=== PATIENT | female | born 1955 | race African-American/Black ===

== ENCOUNTER 2021-05-01 02:46 | Emergency (ER) | payer MEDICARE, OTHER ==
[~2021-05-01] VITALS: Ht 157.5 cm; Wt 59.1 kg
[~2021-05-01 02:46] MED LIST: QUET100T
[2021-05-01] MEDS ORDERED: AMIODARONE HCL 50 MG/ML 3 ML VIAL IV ONE (02:48)
[2021-05-01] MEDS ORDERED: ATROPINE SULFATE 0.1 MG/ML 10 ML SYRINGE IVP ONE (02:48)
[2021-05-01] MEDS ORDERED: EPINEPHrine 1:10,000 [1 MG/10 ML] SYRINGE IVP ONE (02:48)
[2021-05-01] MEDS ORDERED: CALCIUM GLUCONATE 100 MG/ML 10 ML IVP ONE (02:48)
[2021-05-01] MEDS ORDERED: DEXTROSE 50%-WATER 25 GM/50 ML SYRINGE IVP ONE (02:48)
[2021-05-01] MEDS ORDERED: CALCIUM CHLORIDE 100 MG/ML 10 ML VIAL IV ONE (02:48)
[2021-05-01] MEDS ORDERED: QUEtiapine FUMARATE 100 MG TABLET PO ONE ×2 (04:00→04:15)
[2021-05-01 04:31] LABS: COVID AG,FIA SOURCE NASOPHARYNGEAL
[2021-05-01 04:35] LABS: EOSINOPHILS % (AUTO) 1.2 % (1.0-6.0); HEMATOCRIT 41.3 % (36-46); HEMOGLOBIN 14.1 g/dL (12.0-16.0); LYMPHOCYTES # (AUTO) 1.1 K/uL (1.0-4.8); LYMPHOCYTES % (AUTO) 21.9 % (22.0-44.0); MEAN CORPUSCULAR HEMOGLOBIN 29.9 pg (26.0-34.0); MEAN CORPUSCULAR HGB CONC 34.2 G/dL (31.0-37.0); MEAN CORPUSCULAR VOLUME 87 fL (80-100); MONOCYTES # (AUTO) 0.4 K/uL (0.1-1.0); NEUTROPHILS # (AUTO) 3.4 K/uL (1.8-7.7); NEUTROPHILS % (AUTO) 67.9 % (40.0-70.0); PLATELET COUNT (AUTO) 408 K/uL (150-450); RED BLOOD CELL COUNT(AUTO) 4.72 MIL/uL (4.00-5.20); RED CELL DISTRIBUTION WIDTH 13.2 % (11.5-14.5)
[2021-05-01 04:44] LABS: ANION GAP 10 mmol/L (8-16); CALCIUM, TOTAL 9.4 mg/dL (8.8-10.5); CARBON DIOXIDE 27 mmol/L (22-29); CHLORIDE 103 mmol/L (98-107); CREATININE 0.66 mg/dL (0.60-1.30); GLOMERULAR FILTR. RATE CALC > 60 mL/min (>60); GLUCOSE,RANDOM 109 mg/dL (70-110); POTASSIUM 3.9 mmol/L (3.5-5.1); SODIUM SERUM 140 mmol/L (136-145); UREA NITROGEN, BLOOD 20 mg/dL (7-18)
[2021-05-01 04:46] LABS: ALANINE AMINOTRANSFERASE 26 U/L (12-78); ALBUMIN 3.8 g/dL (3.4-5.0); ALKALINE PHOSPHATASE 80 U/L (46-116); ASPARTATE AMINOTRANSFERASE 21 U/L (15-37); BILIRUBIN,TOTAL 0.5 mg/dL (0.1-1.0); TOTAL PROTEIN, SERUM 7.7 g/dL (6.4-8.2)
[2021-05-01 09:53] LABS: APPEARANCE,URINE CLEAR (CLEAR); GLUCOSE, URINE (UA) NEGATIVE (NEGATIVE); KETONES,URINE TRACE mg/dL (NEGATIVE); LEUKOCYTE ESTERASE ,URINE SMALL (NEGATIVE); NITRATE,URINE NEGATIVE (NEGATIVE); OCCULT BLOOD,URINE NEGATIVE (NEGATIVE); PH,URINE 5.5 (5.0-8.0); PROTEIN,URINE TRACE (NEGATIVE)
[2021-05-01 09:58] LABS: AMPHET/METH SCREEN,URINE POSITIVE (NEGATIVE); BARBITURATE SCREEN, URINE NEGATIVE (NEGATIVE); BENZODIAZEPINES SCREEN,URINE NEGATIVE (NEGATIVE); BILIRUBIN,URINE PRELIM. POSITIVE (NEGATIVE); CANNABINOID SCREEN,URINE NEGATIVE (NEGATIVE); COCAINE SCREEN,URINE NEGATIVE (NEGATIVE); METHADONE SCREEN, URINE NEGATIVE (NEGATIVE); OPIATE SCREEN,URINE NEGATIVE (NEGATIVE)
[2021-05-01 09:59] LABS: PHENCYCLIDINE SCREEN,URINE NEGATIVE (NEGATIVE)
[2021-05-01 10:11] LABS: BACTERIA,URINE None Seen /HPF (None Seen); RBC,URINE None Seen /HPF (0-2); SQUAMOUS EPITHELIAL CELL,UR Few /LPF (None Seen)
[2021-05-01] MEDS ORDERED: LORazepam 2 MG TABLET PO PRN (23:45)
[2021-05-01] MEDS ORDERED: OLANZapine 5 MG RAPDIS TABLET PO PRN (23:45)
[2021-05-01] MEDS ORDERED: ZOLPIDEM TARTRATE 10 MG TABLET PO PRN (23:45)
[2021-05-02 08:09] LABS: CHOL/HDL RATIO 1.9 (3.9-5.7); CHOLESTEROL 197 mg/dL (131-200); HDL CHOLESTEROL 106 mg/dL (40-60); LDL CHOL (CALC.) 84 mg/dL (0-130); TRIGLYCERIDES 36 mg/dL (15-150)
[2021-05-03] MEDS ORDERED: PROMETHAZINE HCL 25 MG TABLET PO PRN (20:30)
[2021-05-03] MEDS ORDERED: OLANZapine 10 MG RAPDIS TABLET PO ONE (20:30)
[2021-05-03] MEDS ORDERED: MAG HYDROX/AL HYDROX/SIMETH ES 30 ML SUSPENSION UDCUP PO PRN (20:30)
[2021-05-03] MEDS ORDERED: GuaiFENesin/D-METHORPHAN [SUGAR-FREE] 200-20MG/10 ML SYRUP UDCUP PO PRN (20:30)
[2021-05-03] MEDS ORDERED: HydrOXYzine PAMOATE 50 MG CAPSULE PO PRN (20:30)
[2021-05-03] MEDS ORDERED: MAGNESIUM HYDROXIDE SUSPENSION 30 ML UDCUP PO PRN (20:30)
[2021-05-03] MEDS ORDERED: ACETAMINOPHEN 325 MG TABLET PO PRN (20:30)
[2021-05-03] MEDS ORDERED: LOPERAMIDE HCL 2 MG CAPSULE PO PRN (20:30)
[2021-05-03] MEDS ORDERED: TUBERCULIN, PURIFIED PROTEIN DERIVATIVE 5 TU/0.1 ML SYRINGE ID ONE (20:30)
[2021-05-03] MEDS ORDERED: MELATONIN 5 MG TABLET PO SCH (21:00)
[2021-05-03] MEDS: THIAMINE 100 MG TABLET PO SCH (23:05)
[2021-05-04 07:01] LABS: HEMOGLOBIN A1C 5.9 % (3.8-5.6)
[2021-05-04 07:19] LABS: CHOL/HDL RATIO 2.3 (3.9-5.7); THYROID STIMULATING HORMONE 1.29 uIU/mL (0.36-3.74)
[2021-05-04] MEDS: THIAMINE 100 MG TABLET PO SCH (08:21)
[2021-05-04] MEDS ORDERED: OMEGA-3/DHA/EPA/FISH OIL 1,000 MG CAPSULE PO SCH (09:00)
[2021-05-04] MEDS ORDERED: NALTREXONE HCL 50 MG TABLET PO SCH (09:00)
[2021-05-04] MEDS ORDERED: MULTIVITAMINS WITH MINERALS, THERAPEUTIC TABLET PO SCH (09:00)
[2021-05-04] MEDS ORDERED: FOLIC ACID 1 MG TABLET PO SCH (09:00)
[2021-05-04 13:13] VITALS: BP 132/83
[2021-05-04] MEDS ORDERED: OLANZapine 10 MG RAPDIS TABLET PO SCH (21:00)
== END 2021-05-04 13:15 | disposition admitted as inpatient to this hospital (09) ==
LOC: EMS 02:47
DX: F20.9 Schizophrenia, unspecified (principal); F79 Unspecified intellectual disabilities; Z79.899 Other long term (current) drug therapy; Z20.822 Contact with and (suspected) exposure to COVID-19
CPT/HCPCS: 36415; 80053; 80061; 80307; 81001; 85025; 87086; 87426; 99285; G0480; J0171; J0282; J0461; J0610; J3490; 83036; 84439; 84443; 86592

== ENCOUNTER 2021-08-09 23:31 | Inpatient (IN) | payer MEDICARE, MEDICAID ==
[~2021-08-09] VITALS: Ht 154.9 cm; Wt 59.0 kg
[2021-08-10 01:42] LABS: COVID AG,FIA SOURCE NASAL SWAB
[2021-08-10 01:46] LABS: GLUCOMETER DEV NAME(LOC) ERT.5; GLUCOSE,POINT OF CARE 87 MG/DL (70-110)
[2021-08-10 01:51] LABS: BASOPHILS % (AUTO) 1.4 % (0.0-2.0); EOSINOPHILS % (AUTO) 4.7 % (1.0-6.0); HEMATOCRIT 41.8 % (36-46); HEMOGLOBIN 14.1 g/dL (12.0-16.0); LYMPHOCYTES # (AUTO) 1.8 K/uL (1.0-4.8); LYMPHOCYTES % (AUTO) 43.3 % (22.0-44.0); MEAN CORPUSCULAR HEMOGLOBIN 29.4 pg (26.0-34.0); MEAN CORPUSCULAR HGB CONC 33.6 G/dL (31.0-37.0); MEAN CORPUSCULAR VOLUME 87 fL (80-100); MONOCYTES # (AUTO) 0.6 K/uL (0.1-1.0); NEUTROPHILS # (AUTO) 1.6 K/uL (1.8-7.7); NEUTROPHILS % (AUTO) 37.6 % (40.0-70.0); PLATELET COUNT (AUTO) 414 K/uL (150-450); RED BLOOD CELL COUNT(AUTO) 4.78 MIL/uL (4.00-5.20); RED CELL DISTRIBUTION WIDTH 13.6 % (11.5-14.5)
[2021-08-10 02:28] LABS: ANION GAP 8 mmol/L (8-16); CALCIUM, TOTAL 8.8 mg/dL (8.8-10.5); CARBON DIOXIDE 29 mmol/L (22-29); CHLORIDE 102 mmol/L (98-107); CREATININE 0.85 mg/dL (0.60-1.30); GLOMERULAR FILTR. RATE CALC > 60 mL/min (>60); GLUCOSE,RANDOM 99 mg/dL (70-110); SODIUM SERUM 139 mmol/L (136-145); UREA NITROGEN, BLOOD 26 mg/dL (7-18)
[2021-08-10 02:33] LABS: ALANINE AMINOTRANSFERASE 31 U/L (12-78); ALBUMIN 3.8 g/dL (3.4-5.0); ALKALINE PHOSPHATASE 76 U/L (46-116); ASPARTATE AMINOTRANSFERASE 29 U/L (15-37); BILIRUBIN,TOTAL 0.6 mg/dL (0.1-1.0); TOTAL PROTEIN, SERUM 7.9 g/dL (6.4-8.2)
[2021-08-10] MEDS ORDERED: ZOLPIDEM TARTRATE 10 MG TABLET PO PRN (06:30)
[2021-08-10] MEDS ORDERED: HALOPERIDOL 5 MG TABLET PO PRN (06:30)
[2021-08-10] MEDS ORDERED: LORazepam 2 MG TABLET PO PRN (06:30)
[2021-08-10 14:40] VITALS: BP 146/98
[2021-08-10 16:06] VITALS: BP 144/81
[2021-08-10] MEDS ORDERED: LOPERAMIDE HCL 2 MG CAPSULE PO PRN (16:45)
[2021-08-10] MEDS ORDERED: BENZOCAINE/MENTHOL LOZENGE PO PRN (16:45)
[2021-08-10] MEDS ORDERED: IBUPROFEN 600 MG TABLET PO PRN (16:45)
[2021-08-10] MEDS ORDERED: MAGNESIUM HYDROXIDE SUSPENSION 30 ML UDCUP PO PRN (16:45)
[2021-08-10] MEDS ORDERED: ONDANSETRON HCL 4 MG TABLET PO PRN (16:45)
[2021-08-10] MEDS ORDERED: ACETAMINOPHEN 325 MG TABLET PO PRN (16:45)
[2021-08-10] MEDS ORDERED: OMEPRAZOLE 20 MG CAPSULE PO PRN (16:45)
[2021-08-10] MEDS ORDERED: ALBUTEROL SULFATE HFA 90 MCG/PUFF 8 GM INHALER IH PRN (16:45)
[2021-08-10] MEDS ORDERED: DOCUSATE SODIUM 100 MG CAPSULE PO PRN (16:45)
[2021-08-10] MEDS ORDERED: PETROLATUM,WHITE 28 GM JELLY TP PRN (16:45)
[2021-08-10] MEDS ORDERED: MAG HYDROX/AL HYDROX/SIMETH ES 30 ML SUSPENSION UDCUP PO PRN (16:45)
[2021-08-10] MEDS ORDERED: CloNIDine HCL 0.1 MG TABLET PO PRN (16:45)
[2021-08-10] MEDS ORDERED: BACITRACIN 28 GM OINTMENT TP PRN (16:45)
[2021-08-10] MEDS: DIVALPROEX SODIUM 500 MG DR TABLET PO SCH (20:07)
[2021-08-11 06:26] VITALS: BP 126/70
[2021-08-11] MEDS: RisperiDONE 2 MG TABLET PO SCH ×2 (08:01→16:57)
[2021-08-11] MEDS: DIVALPROEX SODIUM 500 MG DR TABLET PO SCH ×2 (08:01→20:47)
[2021-08-11] MEDS: LISINOPRIL 10 MG TABLET PO SCH (08:01)
[2021-08-11 08:06] VITALS: BP 135/71
[2021-08-11 16:23] VITALS: BP 101/70
[2021-08-12 00:20] VITALS: BP 118/75
[2021-08-12 08:13] VITALS: BP 106/65
[2021-08-12 09:00] VITALS: BP 114/70
[2021-08-12] MEDS: RisperiDONE 2 MG TABLET PO SCH ×2 (09:11→16:41)
[2021-08-12] MEDS: DIVALPROEX SODIUM 500 MG DR TABLET PO SCH ×2 (09:11→20:40)
[2021-08-12] MEDS: LISINOPRIL 10 MG TABLET PO SCH (09:12)
[2021-08-12 16:10] VITALS: BP 107/84
[2021-08-13 00:27] VITALS: BP 102/72
[2021-08-13 08:04] VITALS: BP 134/72
[2021-08-13] MEDS: LISINOPRIL 10 MG TABLET PO SCH (08:19)
[2021-08-13] MEDS: DIVALPROEX SODIUM 500 MG DR TABLET PO SCH ×2 (08:19→20:18)
[2021-08-13] MEDS: RisperiDONE 2 MG TABLET PO SCH ×2 (08:20→16:17)
[2021-08-13 17:03] VITALS: BP 132/76
[2021-08-14 05:17] VITALS: BP 114/71
[2021-08-14 08:01] VITALS: BP 136/78
[2021-08-14] MEDS: RisperiDONE 2 MG TABLET PO SCH (08:10)
[2021-08-14] MEDS: DIVALPROEX SODIUM 500 MG DR TABLET PO SCH (08:10)
[2021-08-14] MEDS: LISINOPRIL 10 MG TABLET PO SCH (08:10)
[2021-08-14] MEDS ORDERED: RISP2TAB45 PO (11:20)
[2021-08-14] MEDS ORDERED: DIVA-112 PO ×2 (11:20→16:30)
[2021-08-14] MEDS ORDERED: LISI-893 PO (11:20)
[2021-08-14] MEDS ORDERED: RISP2TAB86 PO (16:30)
[2021-08-20] MEDS ORDERED: DIVA-112 PO (18:59)
[2021-08-20] MEDS ORDERED: RISP2TAB45 PO (18:59)
== END 2021-08-14 14:14 | disposition home or self-care (01) | DRG 750 ==
LOC: EMS 23:33 → B3A 08-10 09:04
PROVIDERS: ADMIT Psychiatry & Neurology Psychiatry; ATTEND Psychiatry & Neurology Psychiatry
DX: F25.9 Schizoaffective disorder, unspecified (principal); E11.9 Type 2 diabetes mellitus without complications; F12.90 Cannabis use, unspecified, uncomplicated; Z20.822 Contact with and (suspected) exposure to COVID-19; F15.10 Other stimulant abuse, uncomplicated; F31.9 Bipolar disorder, unspecified; F41.9 Anxiety disorder, unspecified; G47.00 Insomnia, unspecified; H54.8 Legal blindness, as defined in USA; I10 Essential (primary) hypertension; K59.00 Constipation, unspecified; Z91.83 Wandering in diseases classified elsewhere; Z72.89 Other problems related to lifestyle; Z88.8 Allergy status to other drugs, medicaments and biological substances
CPT/HCPCS: 80053; 82962; 85025; 99285; G0480